=== PATIENT | female | born 1990 | race Caucasian/White ===

== ENCOUNTER 2021-02-25 17:23 | Emergency (ER) | payer BC ==
[~2021-02-25] VITALS: Ht 167.6 cm; Wt 96.6 kg
[2021-02-25] MEDS ORDERED: ondansetron/PF 4mg/2ml inj IV ONE ×2 (18:10→19:25)
[2021-02-25] MEDS ORDERED: pantoprazole 40 MG vial IV ONE (18:10)
[2021-02-25] MEDS ORDERED: diphenhydrAMINE 50 mg/ml inj IV ONE (18:10)
[2021-02-25] MEDS ORDERED: normal saline 1000ML IV soln IVB ONE (18:10)
[2021-02-25] MEDS ORDERED: proCHLORperazine 10 MG/2 ml inj IV ONE (18:10)
[2021-02-25] MEDS ORDERED: PANT20TA18 PO (18:26)
[2021-02-25] MEDS ORDERED: ONDA4TAB6 PO (18:26)
[2021-02-25 18:43] LABS: BASOPHILS % (AUTO) 0.2 % (0-1); EOSINOPHILS % (AUTO) 0.1 % (0-6); HEMATOCRIT 40.3 % (35.0-45.0); HEMOGLOBIN 13.6 g/dl (12.0-16.0); LYMPHOCYTES # (AUTO) 1.5 X10'3 (1.1-4.8); LYMPHOCYTES % (AUTO) 13.1 % (21-51); MEAN CORPUSCULAR HGB CONC 33.7 g/dL (33.0-36.5); MEAN CORPUSCULAR VOLUME 94.8 FL (78-98); MEAN PLATELET VOLUME 7.7 FL (7.4-10.4); MONOCYTES # (AUTO) 0.6 X10'3 (0-0.9); MONOCYTES % (AUTO) 5.2 % (2-12); NEUTROPHILS # (AUTO) 9.3 X10'3 (1.8-7.7); NEUTROPHILS % (AUTO) 81.4 % (42-75); PLATELET COUNT 392 X10'3 (140-440); RED BLOOD COUNT 4.25 X10'6 (4.20-5.60); RED CELL DISTRIBUTION WIDTH 13.4 % (11.5-14.5); WHITE BLOOD COUNT 11.4 X10'3 (4.5-11.0)
[2021-02-25 18:56] LABS: ALANINE AMINOTRANSFERASE 28 U/L (12-78); ALBUMIN 4.3 G/DL (3.4-5.0); ALBUMIN/GLOBULIN RATIO 1.1 (1.1-1.5); ALKALINE PHOSPHATASE 90 IU/L (46-116); ANION GAP 11 (8-16); ASPARTATE AMINO TRANSFERASE 22 U/L (10-37); BILIRUBIN,TOTAL 0.4 MG/DL (0.1-1.0); BLOOD UREA NITROGEN 10 MG/DL (7-18); BUN/CREATININE RATIO 18.9 (6.6-38.0); CALCIUM 9.4 MG/DL (8.5-10.1); CHLORIDE 102 MMOL/L (99-107); CREATININE 0.53 MG/DL (0.40-0.90); GLUCOSE 108 MG/DL (70-104); LIPASE 87 U/L (73-393); POTASSIUM 3.6 MMOL/L (3.5-5.1); SODIUM 139 MMOL/L (135-145); TOTAL CARBON DIOXIDE 26.3 MMOL/L (24-32); TOTAL PROTEIN 8.2 G/DL (6.4-8.2); eGFR > 90 ML/MIN
[2021-02-25] MEDS ORDERED: acetaminophen 325mg tablet PO ONE (19:05)
[2021-02-25 19:48] VITALS: BP 124/74
== END 2021-02-25 19:50 | disposition home or self-care (01) ==
LOC: ER 17:23
DX: K29.00 Acute gastritis without bleeding (principal); R11.2 Nausea with vomiting, unspecified; R10.13 Epigastric pain; E86.0 Dehydration; Z88.5 Allergy status to narcotic agent; Z79.899 Other long term (current) drug therapy
CPT/HCPCS: 36415; 80053; 83690; 85025; 96361; 96374; 96375; 96376; 99284; C9113; J0780; J1200; J2405; J7030